=== PATIENT | female | born 1995 | race Two or more races ===

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

== ENCOUNTER → 2017-03-21 | Outpatient (CLI) | payer OTHER ==
[~2017-03-21] MED LIST: CEPH-264 PO
--- NOTE | 2017-03-21 16:27 | RAD ---
Obstetrical ultrasound, 03/21/2017: History: Size and date discrepancy Transabdominal scans were obtained. There is a single intrauterine fetus present in a breech orientation. The biparietal diameter measures 5.6 cm compatible with a gestational age of 22-23 weeks. This corresponds well with the other measurements and yields a sonographic EDC of 07/22/2017. Normal activity and heart motion were seen. The heart rate was 143 bpm. No specific abnormality is detected. The placenta lies anteriorly with no evidence of a placenta previa. A normal amount of amniotic fluid is present. The cervical length was measured at approximate 5 cm, although probably accentuated by the distended urinary bladder. IMPRESSION: Single viable intrauterine fetus of 22-23 weeks gestational age as described above.
== END | disposition home or self-care (01) ==
LOC: US 11:58
PROVIDERS: ATTEND Obstetrics & Gynecology
DX: O26.842 Uterine size-date discrepancy, second trimester (principal); Z3A.22 22 weeks gestation of pregnancy
CPT/HCPCS: 76805

== ENCOUNTER → 2017-05-28 | Outpatient (CLI) | payer OTHER ==
[~2017-05-28] VITALS: Ht 157.5 cm; Wt 56.2 kg
[~2017-05-28] MED LIST changes: +cefTRIAXone IM 250 MG VIAL IM ONE
[2017-05-28 11:45] VITALS: BP 100/51
== END | disposition home or self-care (01) ==
LOC: OPS 11:33
PROVIDERS: ATTEND Obstetrics & Gynecology
DX: O98.213 Gonorrhea complicating pregnancy, third trimester (principal); O98.813 Other maternal infectious and parasitic diseases complicating pregnancy, third trimester; Z3A.33 33 weeks gestation of pregnancy
CPT/HCPCS: 96372; J0696

== ENCOUNTER 2017-07-06 22:59 | Observation (INO) | payer OTHER ==
[2017-05-28 11:45] VITALS: BP 100/51
[~2017-07-06] VITALS: Ht 157.5 cm; Wt 59.9 kg
[~2017-07-06 22:59] MED LIST changes: -cefTRIAXone IM 250 MG VIAL IM ONE
[2017-07-06] MEDS ORDERED: IV RINGERS,LACTATED 1000ML 1,000 ML IV SCH (23:04)
[2017-07-06] MEDS ORDERED: ONDANSETRON PF 4 MG/2 ML VIAL. IV PRN (23:15)
[2017-07-06 23:23] LABS: BILIRUBIN,URINE NEGATIVE (NEG); GLUCOSE,URINE NEGATIVE (NEG); NITRITE,URINE NEGATIVE (NEG); PROTEIN,URINE NEGATIVE (NEG-TRACE)
[2017-07-06 23:29] LABS: BACTERIA,URINE MODERATE /HPF (0-FEW); RBC,URINE 0 /HPF (0-2); SQUAMOUS EPITHELIAL CELL,UR MANY /LPF; WBC,URINE >40 /HPF (0-4)
[2017-07-06 23:30] LABS: BARBITURATES NEG (NEG); BENZODIAZEPINES NEG (NEG); CANNABINOIDS NEG (NEG); COCAINE NEG (NEG); METHADONE NEG (NEG); OPIATES NEG (NEG); PHENCYCLIDINE NEG (NEG)
[2017-07-07] MEDS ORDERED: DOCUSATE SODIUM 100 MG CAPSULE. PO PRN (00:45)
[2017-07-07] MEDS ORDERED: IV RINGERS,LACTATED 1000ML 1,000 ML IV SCH (01:00)
[2017-07-07] MEDS ORDERED: cefTRIAXone IM 250 MG VIAL IM ONE (01:00)
--- NOTE | 2017-07-07 13:12 | PDOC1 ---
OB - History Hx of Present Care: Good Care Ultrasounds: Normal mid trimester US Obstetrical Complications: None Medical Complications: Other (Repeat positive for Gonorrhea x 3) Past Family/Social History * Past Medical, Surgical, Family and Obstetric Histories reviewed from chart. Rubella: Immune RPR/VDRL: Negative GBS Status: Negative HBsAG: Negative OB - Chief Complaint & HPI Date of Admission: Date of Admission: Jul 06, 2017 at 22:59 Chief Complaint/History : 1 Para: 0 EGA: 37 Reason for admission: observation (contractions) Admission Nurse Assessment Rev: Yes Problems: OB - Admission Exam Physical Exam HEENT: Normal Heart: Regular Rate Lungs: Clear Abdomen: Gravid, Non tender, Soft Extremities: Edema Reflexes: Normal Cervical Dilatation: None Effacement: 0% Station: Ballotable Membranes: Intact Heart Rate: Normal Accelerations: Accelerations Present Decelerations: No decelerations Contractions on Admission: >10 Minutes Apart Intensity: Mild Text A: 37 wks IUP Exposure Gonorrhea P: Rocephin IM. IV hydration. Pt. observed overnight. Provided education on STD. F/u in 1 wk. HENRY PRESSLEY Jr, MD Jul 07, 2017 13:12
== END 2017-07-07 13:37 | disposition home or self-care (01) ==
LOC: 3 SO LND 22:59
PROVIDERS: ADMIT Obstetrics & Gynecology; ATTEND Obstetrics & Gynecology
DX: O98.213 Gonorrhea complicating pregnancy, third trimester (principal); O62.9 Abnormality of forces of labor, unspecified; Z3A.37 37 weeks gestation of pregnancy
CPT/HCPCS: 80307; 81001; 87086; 96360; 96361; 96372; G0378; G0379; J0696; J7120; G0479

== ENCOUNTER 2018-12-17 18:56 | Emergency (ER) | payer OTHER, BC ==
[~2018-12-17] VITALS: Ht 157.5 cm; Wt 50.8 kg
[~2018-12-17 18:56] MED LIST changes: +DOCU-109 PO; +FERR324T5 PO; +IBUP-1060 PO
[2018-12-17 19:42] LABS: BILIRUBIN,URINE NEGATIVE (NEG); CLARITY,URINE CLEAR; COLOR,URINE YELLOW; NITRITE,URINE NEGATIVE (NEG); PROTEIN,URINE NEGATIVE (NEG-TRACE)
[2018-12-17] MEDS ORDERED: ONDANSETRON PF 4 MG/2 ML VIAL. IV ONE (19:45)
[2018-12-17] MEDS ORDERED: IV NORMAL SALINE 1000ML BAG 1,000 ML IV ONE (19:45)
[2018-12-17 19:47] LABS: BASO % 0 % (0-3); EOS # 0.1 x10^3/uL (0.0-0.7); EOS % 1 % (0-3); HEMATOCRIT 34.2 % (36.0-47.0); HEMOGLOBIN 11.7 g/dL (12.0-15.5); LYMPH # 1.2 x10^3/uL (1.0-4.8); LYMPH % 16 % (24-48); MEAN CORPUSCULAR HEMOGLOBIN 28 pg (25-35); MEAN CORPUSCULAR HGB CONC 34 g/dL (31-37); MEAN CORPUSCULAR VOLUME 82 fL (79-100); MONO # 0.4 x10^3/uL (0.0-1.1); MONO % 6 % (0-9); NEUT # 5.9 x10^3uL (1.8-7.7); NEUT % 77 % (31-73); PLATELET COUNT 236 x10^3/uL (140-400); RED BLOOD COUNT 4.18 x10^6/uL (3.50-5.40); RED CELL DISTRIBUTION WIDTH 15.8 % (11.5-14.5); WHITE BLOOD COUNT 7.6 x10^3/uL (4.0-11.0)
[2018-12-17 19:49] LABS: BARBITURATES NEG (NEG); BENZODIAZEPINES NEG (NEG); CANNABINOIDS NEG (NEG); COCAINE NEG (NEG); METHADONE NEG (NEG); OPIATES NEG (NEG); PHENCYCLIDINE NEG (NEG)
[2018-12-17 19:51] LABS: AMPHETAMINE/METHAMPHETAMINE NEG (NEG)
--- NOTE | 2018-12-17 19:52 | PHYS DOC ---
Past Medical History Past Medical History: Asthma (SUKUMAR HUERTA APRN) Past Surgical History: Other Additional Past Surgical Histo: RIGHT EAR SX (SUKUMAR HUERTA APRN) Alcohol Use: None Drug Use: None (SUKUMAR HUERTA APRN) Adult General Chief Complaint Chief Complaint: ABDOMINAL PAIN IN HPI HPI Patient is a 23 year old female 3 para 1, 1 miscarriage, who presents to the ED today with abdominal pain in . Patient states she had tacos for dinner at [employer] a couple minutes prior to coming to the ED when she developed left-sided abdominal pain with nausea and no vomiting. Patient denies any vaginal bleeding. Denies any unusual vaginal discharge. She states she follows up with and was seen a week ago. She states she was informed she is 19 weeks . (SUKUMAR HUERTA APRN) Review of Systems Review of Systems Constitutional: Denies fever or chills [] Eyes: Denies change in visual acuity, redness, or eye pain [] HENT: Denies nasal congestion or sore throat [] Respiratory: Denies cough or shortness of breath [] Cardiovascular: No additional information not addressed in HPI [] GI: Reports left-sided abdominal pain, nausea, denies vomiting, bloody stools or diarrhea [] : Denies dysuria or hematuria [] Musculoskeletal: Denies back pain or joint pain [] Integument: Denies rash or skin lesions [] Neurologic: Denies headache, focal weakness or sensory changes [] All other systems were reviewed and found to be within normal limits, except as documented in this note. (SUKUMAR HUERTA APRN) Current Medications Current Medications Current Medications Medications (Trade) Dose Ordered Sig/Ismael Start Time Stop Time Status Last Admin Dose Admin Ondansetron HCl (Zofran) 4 mg 1X ONCE 12/17/18 19:45 12/17/18 19:46 DC 12/17/18 20:15 4 MG Sodium Chloride 1,000 ml @ 1,000 mls/hr 1X ONCE 12/17/18 19:45 12/17/18 20:44 DC 12/17/18 20:15 1,000 MLS/HR (YUKI CHRISTINA APRN) Allergies Allergies Allergies Coded Allergies Type Severity Reaction Last Updated Verified No Known Allergies Allergy Unknown 05/28/17 Yes (YUKI CHRISTINA LAUREL) Physical Exam Physical Exam Constitutional: Well developed, well nourished, no acute distress, non-toxic appearance. [] HENT: Normocephalic, atraumatic, bilateral external ears normal, oropharynx moist, no oral exudates, nose normal. [] Eyes: PERRLA, EOMI, conjunctiva normal, no discharge. [] Neck: Normal range of motion, no tenderness, supple, no stridor. [] Cardiovascular:Heart rate regular rhythm, no murmur [] Lungs & Thorax: Bilateral breath sounds clear to auscultation [] Abdomen: Gravid abdomen. Bowel sounds normal, soft, no tenderness, no masses, no pulsatile masses. [] Skin: Warm, dry, no erythema, no rash. [] Back: No tenderness, no CVA tenderness. [] Extremities: No tenderness, no cyanosis, no clubbing, ROM intact, no edema. [] Neurologic: Alert and oriented X 3, normal motor function, normal sensory function, no focal deficits noted. [] Psychologic: Affect normal, judgement normal, mood normal. [] (SUKUMAR HUERTA APRN) Current Patient Data Vital Signs Vital Signs Date Time Temp Pulse Resp B/P (MAP) Pulse Ox O2 Delivery O2 Flow Rate FiO2 12/17/18 19:25 98.1 96 16 108/56 (73) 98 Room Air 98.1 (YUKI CHRISTINA LAUREL) Lab Values Laboratory Tests Test 12/17/18 19:16 12/17/18 19:35 Urine Collection Type Unknown Urine Color Yellow Urine Clarity Clear Urine pH 6.0 Urine Specific Norman 1.025 Urine Protein Negative mg/dL (NEG-TRACE) Urine Glucose (UA) Negative mg/dL (NEG) Urine Ketones (Stick) Negative mg/dL (NEG) Urine Blood Negative (NEG) Urine Nitrite Negative (NEG) Urine Bilirubin Negative (NEG) Urine Urobilinogen Dipstick 1.0 mg/dL (0.2 mg/dL) Urine Leukocyte Esterase Negative (NEG) Urine RBC 0 /HPF (0-2) Urine WBC Rare /HPF (0-4) Urine Squamous Epithelial Cells Few /LPF Urine Amorphous Sediment Present /HPF Urine Bacteria Few /HPF (0-FEW) Urine Mucus Mod /LPF Urine Opiates Screen Neg (NEG) Urine Methadone Screen Neg (NEG) Urine Barbiturates Neg (NEG) Urine Phencyclidine Screen Neg (NEG) Urine Amphetamine/Methamphetamine Neg (NEG) Urine Benzodiazepines Screen Neg (NEG) Urine Cocaine Screen Neg (NEG) Urine Cannabinoids Screen Neg (NEG) Urine Ethyl Alcohol Neg (NEG) White Blood Count 7.6 x10^3/uL (4.0-11.0) Red Blood Count 4.18 x10^6/uL (3.50-5.40) Hemoglobin 11.7 g/dL (12.0-15.5) L Hematocrit 34.2 % (36.0-47.0) L Mean Corpuscular Volume 82 fL (79-100) Mean Corpuscular Hemoglobin 28 pg (25-35) Mean Corpuscular Hemoglobin Concent 34 g/dL (31-37) Red Cell Distribution Width 15.8 % (11.5-14.5) H Platelet Count 236 x10^3/uL (140-400) Neutrophils (%) (Auto) 77 % (31-73) H Lymphocytes (%) (Auto) 16 % (24-48) L Monocytes (%) (Auto) 6 % (0-9) Eosinophils (%) (Auto) 1 % (0-3) Basophils (%) (Auto) 0 % (0-3) Neutrophils # (Auto) 5.9 x10^3uL (1.8-7.7) Lymphocytes # (Auto) 1.2 x10^3/uL (1.0-4.8) Monocytes # (Auto) 0.4 x10^3/uL (0.0-1.1) Eosinophils # (Auto) 0.1 x10^3/uL (0.0-0.7) Basophils # (Auto) 0.0 x10^3/uL (0.0-0.2) Maternal Serum HCG Beta Subunit 25103 mIU/mL (0-5) H Sodium Level 141 mmol/L (136-145) Potassium Level 3.6 mmol/L (3.5-5.1) Chloride Level 105 mmol/L (98-107) Carbon Dioxide Level 24 mmol/L (21-32) Anion Gap 12 (6-14) Blood Urea Nitrogen 8 mg/dL (7-20) Creatinine 0.5 mg/dL (0.6-1.0) L Estimated GFR (Cockcroft-Gault) 155.7 BUN/Creatinine Ratio 16 (6-20) Glucose Level 119 mg/dL (70-99) H Calcium Level 9.2 mg/dL (8.5-10.1) Total Bilirubin 0.2 mg/dL (0.2-1.0) Aspartate Amino Transferase (AST) 17 U/L (15-37) Alanine Aminotransferase (ALT) 16 U/L (14-59) Alkaline Phosphatase 102 U/L (46-116) Total Protein 7.3 g/dL (6.4-8.2) Albumin 2.8 g/dL (3.4-5.0) L Albumin/Globulin Ratio 0.6 (1.0-1.7) L Ethyl Alcohol Level < 10 mg/dL (0-10) Laboratory Tests 12/17/18 19:35 Laboratory Tests 12/17/18 19:35 (YUKI CHRISTINA APRN) EKG EKG [] (SUKUMAR HUERTA APRN) Radiology/Procedures Radiology/Procedures [] (SUKUMAR HUERTA APRN) Radiology/Procedures PROCEDURE: PREG MORE THAN OR EQ TO 14 WKS OB ultrasound greater than 14 weeks 12/17/2018 Clinical History: Left lower quadrant abdominal and pelvic pain since earlier today. Technique: A real-time ultrasound examination of the gravid uterus was performed. Multiple images were obtained. Findings: There is a single living IUP. The fetus is in a breech position. cardiac and somatic activity is seen. The heart rate is 160 beats per minutes. The maternal cervix is closed. It measures 3.63cm in length. The placenta is anterior. No abnormality is seen. The amniotic fluid volume is within normal limits. Neither maternal ovary is visualized. The following measurements were obtained: BPD 4.31cm 19 weeks 0 days HC 16.0 cm 18weeks 6 days AC 13.7 cm 19weeks 1 days FL 3.1 cm 19 weeks 5 days The estimated gestational age by ultrasound is 19 weeks 1 days plus or minus a standard deviation of 10 days. The estimated date of delivery by ultrasound is 05/12/2019. No abnormality is seen. Specifically the stomach, bladder, kidneys, 3 vessel cord and cord insertion, four-chamber heart, cisterna magna, cerebellum, nose/mouth, spine and extremities are well-visualized and within normal limits. Impression: Single living IUP with an estimated gestational age by ultrasound of 19 weeks 1 days +/- a standard deviation of 10 days. The estimated date of delivery by ultrasound is 05/12/2019. Electronically signed by: Nick Craft MD (12/17/2018 8:44 PM) [facility] DICTATED and SIGNED BY: NICK CRAFT MD DATE: 12/17/182036 (YUKI CHRISTINA APRN) Course & Med Decision Making Course & Med Decision Making Pertinent Labs and Imaging studies reviewed. (See chart for details) This is a 23-year-old female patient currently 19 weeks presenting to the ED today with left-sided abdominal pain with nausea that began after she had tacos. 19:52 Care transferred to Yuki Christina [facility]ES[facility] (SUKUMAR HUERTA APRN) Course & Med Decision Making 2044: Assumed care of this patient. Discussed test results with patient and significant other at bedside. HCG Quant 06509; H&H 11.7/34.2- which in pt's records her H&H has been low in the past. UA negative for protein, blood, leukocytes, or ketones. Ultrasound report "Single living IUP with an estimated gestational age by ultrasound of 19 weeks 1 days +/- a standard deviation of 10 days. The estimated date of delivery by ultrasound is 05/12/2019". Patient reports pain has subsided and she denies any vaginal pressure or bleeding while in the ER. Discussed patient calling TELECOMMUNICATIONS CLERK tomorrow and discussing ER visit. Education provided on signs and symptoms to return to ER for. Patient advised to avoid acidic or spicy foods. Discharge instructions were discussed and patient feels comfortable with home discharge plan. (YUKI CHRISTINA APRN) Dragon Disclaimer Dragon Disclaimer This electronic medical record was generated, in whole or in part, using a voice recognition dictation system. (SUKUMAR HUERTA APRN) Departure Departure Impression: Primary Impression: Abdominal pain affecting Disposition: 01 HOME, SELF-CARE Condition: STABLE Referrals: UNKNOWN PCP NAME (PCP) Patient Instructions: Abdominal Pain During Additional Instructions: Drink plenty of water. Avoid spicy foods. Follow-up with your TELECOMMUNICATIONS CLERK tomorrow and discuss your Emergency Department visit. SUKUMAR HUERTA APRN Dec 17, 2018 19:52 YUKI CHRISTINA APRN Dec 17, 2018 20:56
[2018-12-17 19:55] LABS: CALCIUM 9.2 mg/dL (8.5-10.1); CREATININE 0.5 mg/dL (0.6-1.0); GFR 155.7; POTASSIUM 3.6 mmol/L (3.5-5.1)
[2018-12-17 19:56] LABS: AMORPHOUS SEDIMENT,UR PRESENT /HPF; BACTERIA,URINE FEW /HPF (0-FEW); RBC,URINE 0 /HPF (0-2); SQUAMOUS EPITHELIAL CELL,UR FEW /LPF; WBC,URINE RARE /HPF (0-4)
[2018-12-17 20:05] LABS: ALBUMIN 2.8 g/dL (3.4-5.0); ALBUMIN/GLOBULIN RATIO 0.6 (1.0-1.7); TOTAL BILIRUBIN 0.2 mg/dL (0.2-1.0); TOTAL PROTEIN 7.3 g/dL (6.4-8.2)
--- NOTE | 2018-12-17 20:47 | RAD ---
OB ultrasound greater than 14 weeks 12/17/2018 Clinical History: Left lower quadrant abdominal and pelvic pain since earlier today. Technique: A real-time ultrasound examination of the gravid uterus was performed. Multiple images were obtained. Findings: There is a single living IUP. The fetus is in a breech position. cardiac and somatic activity is seen. The heart rate is 160 beats per minutes. The maternal cervix is closed. It measures 3.63cm in length. The placenta is anterior. No abnormality is seen. The amniotic fluid volume is within normal limits. Neither maternal ovary is visualized. The following measurements were obtained: BPD 4.31cm 19 weeks 0 days HC 16.0 cm 18weeks 6 days AC 13.7 cm 19weeks 1 days FL 3.1 cm 19 weeks 5 days The estimated gestational age by ultrasound is 19 weeks 1 days plus or minus a standard deviation of 10 days. The estimated date of delivery by ultrasound is 05/12/2019. No abnormality is seen. Specifically the stomach, bladder, kidneys, 3 vessel cord and cord insertion, four-chamber heart, cisterna magna, cerebellum, nose/mouth, spine and extremities are well-visualized and within normal limits. Impression: Single living IUP with an estimated gestational age by ultrasound of 19 weeks 1 days +/- a standard deviation of 10 days. The estimated date of delivery by ultrasound is 05/12/2019. Electronically signed by: Nick Craft MD (12/17/2018 8:44 PM) [facility]
[2018-12-17 21:08] VITALS: BP 100/55
== END 2018-12-17 21:32 | disposition home or self-care (01) ==
LOC: ER 18:56
DX: O26.892 Other specified pregnancy related conditions, second trimester (principal); R10.9 Unspecified abdominal pain; R11.0 Nausea; O99.512 Diseases of the respiratory system complicating pregnancy, second trimester; J45.909 Unspecified asthma, uncomplicated; Z3A.19 19 weeks gestation of pregnancy
CPT/HCPCS: 36415; 76805; 80053; 80307; 81001; 84702; 85025; 96374; 99284; G0480; J2405; J7030

== ENCOUNTER → 2018-12-30 | Outpatient (CLI) | payer BC, OTHER ==
[2018-12-17 21:08] VITALS: BP 100/55
--- NOTE | 2018-12-30 13:58 | RAD ---
EXAM: Obstetrics sonogram. HISTORY: weight and gender assessment. TECHNIQUE: Sonographic imaging of a gravid uterus was performed. COMPARISON: 12/17/2018. FINDINGS: There is a single intrauterine fetus in cephalic presentation with a heart rate of 140 bpm. There is an anterior placenta without evidence of placenta previa. The amniotic fluid volume is normal at 13.8 cm. The cervix is closed and measures 3.0 cm in length. The biparietal diameter is 5.02 cm, corresponding with 21 weeks and 1 day. The head circumference is 18.85 cm, corresponding with 21 weeks and 1 day. The abdominal circumference is 15.95 cm, corresponding with 21 weeks and 0 days. The femoral length is 3.48 cm, corresponding with 21 weeks and 0 days. The estimated gestational age patient combined ultrasound measurements is 21 weeks and 1 day and the estimated due date is 05/11/2019. The estimated weight is 395 g. The gender is female. IMPRESSION: 1. Single intrauterine female fetus with an estimated gestational age of 21 weeks and 1 day and heart rate of 140 bpm. 2. Note is made that a formal anatomy survey was performed on the prior study. Electronically signed by: Liliana Garza MD (12/30/2018 1:55 PM) [place] [id number]
== END | disposition home or self-care (01) ==
LOC: US 14:30
PROVIDERS: ATTEND Obstetrics & Gynecology
DX: O26.842 Uterine size-date discrepancy, second trimester (principal); Z3A.21 21 weeks gestation of pregnancy
CPT/HCPCS: 76816

== ENCOUNTER 2019-02-24 11:54 | Observation (INO) | payer BC, OTHER ==
[2019-02-24 12:38] LABS: BILIRUBIN,URINE NEGATIVE (NEG); CLARITY,URINE CLEAR; COLOR,URINE YELLOW; NITRITE,URINE NEGATIVE (NEG); PROTEIN,URINE NEGATIVE (NEG-TRACE); UROBILINOGEN,URINE 0.2 mg/dL (0.2 mg/dL)
[2019-02-24 12:45] LABS: AMPHETAMINE/METHAMPHETAMINE NEG (NEG); BARBITURATES NEG (NEG); BENZODIAZEPINES NEG (NEG); CANNABINOIDS NEG (NEG); COCAINE NEG (NEG); METHADONE NEG (NEG); OPIATES NEG (NEG); PHENCYCLIDINE NEG (NEG)
[2019-02-24 12:47] LABS: AMNIO PT NEGATIVE
[2019-02-24 12:49] LABS: BACTERIA,URINE FEW /HPF (0-FEW); RBC,URINE 0 /HPF (0-2); SQUAMOUS EPITHELIAL CELL,UR MOD /LPF
[2019-02-24] MEDS ORDERED: IV RINGERS,LACTATED 1000ML 1,000 ML IV SCH (13:00)
[2019-02-24] MEDS ORDERED: TERBUTALINE 1 MG/ML VIAL. SQ ONE (13:45)
[2019-02-24 14:29] VITALS: BP 96/62
== END 2019-02-24 15:40 | disposition home or self-care (01) ==
LOC: 3 SO LND 11:54
PROVIDERS: ADMIT Obstetrics & Gynecology; ATTEND Obstetrics & Gynecology
DX: O42.913 Preterm premature rupture of membranes, unspecified as to length of time between rupture and onset of labor, third trimester (principal); O26.893 Other specified pregnancy related conditions, third trimester; M54.5 Low back pain; R10.30 Lower abdominal pain, unspecified; Z3A.29 29 weeks gestation of pregnancy
CPT/HCPCS: 36415; 80307; 81001; 84112; 87086; 96372; G0378; G0379; J3105; J7120